=== PATIENT | male | born 1995 | race Caucasian/White ===

== ENCOUNTER 2020-05-28 11:23 | Emergency (ER) | payer OTHER ==
[2020-05-28] MEDS ORDERED: Sodium Chloride 0.9% 1000 ML 1,000 ML IV STA (11:28)
[2020-05-28] MEDS ORDERED: Sodium Chloride 0.9% 1000 ML 1,000 ML ONE (11:38)
[2020-05-28 11:47] LABS: Absolute Neutrophil Ct (ANC) 8.91 (1.4-6.9); BASOPHIL % 0.1 % (0.0-0.4); Basophil (Absolute #) 0.01 (0-0.4); Eosinophil % 0.1 % (0.00-5.0); Eosinophil (Absolute #) 0.01 (0-0.5); Hematocrit 48.3 % (42-50); Lymphocyte (Absolute #) 0.92 (1.0-4.6); Lymphocytes % 8.5 % (24.0-44.0); Mean Cell Volume 97.8 fl (78-100); Mean Corpuscular Hemoglobin 32.4 pg (26-32); Mean Corpuscular Hgb Concent. 33.1 g/dl (32-36); Mean Platelet Volume 11.1 fl (7.5-11.0); Monocyte (Absolute #) 0.94 (0.0-1.3); Monocytes % 8.7 % (0.0-12.0); Neutrophil % 82.6 % (36.0-66.0); Platelet Count 179 K/mm3 (150-450); Red Blood Count 4.94 M/mm3 (4.1-5.6); Red Cell Distribution Width 13.1 % (11.5-14.0); White Blood Count 10.8 K/mm3 (4.0-10.5)
[2020-05-28 11:57] LABS: ALBUMIN 4.6 g/dL (3.5-5.0); ALKALINE PHOSPHATASE 57 U/L (38-126); ANION GAP 14.6 MEQ/L (5-15); BLOOD UREA NITROGEN 15 mg/dL (9-20); CHLORIDE 104 mmol/L (98-107); Calcium 9.7 mg/dL (8.4-10.2); Carbon Dioxide 26 mmol/L (22-30); Creatinine 1 1.03 mg/dL (0.66-1.25); EST GLOMERULAR FILTRATION RATE > 60.0 ML/MIN; Glucose 91 mg/dL (74-106); Potassium 4.6 mmol/L (3.5-5.1); SGOT/AST 52 U/L (17-59); SGPT/ALT 31 U/L (0-50); SODIUM 140 mmol/L (137-145); Total Protein 7.7 g/dL (6.3-8.2)
[2020-05-28] MEDS ORDERED: Keppra 500 MG/5 ML*** 1,000 MG in D5w 100ML Mini Bag 100 ML 100 ML IV ONE (12:01)
--- NOTE | 2020-05-28 12:01 | ERPHSYRPT ---
- History of Present Illness Time Seen by Provider: 05/28/20 11:57 Source: patient, EMS Exam Limitations: no limitations Patient Subjective Stated Complaint: pt here from [facility] for seizures since last yesterday, he was seen at [facility] yesterday for same thing and sent home. they states he has over 20 at half-way today and had 4 in ambulance. pt had one seizure here lasting 20 seconds, pt is now alert. Triage Nursing Assessment: pt alert, resp easy, face mask givne, has swelling and bruising to right eye from falling yesterday, and has abrasion with swelling to left side of forehead, Physician History: pt here from [facility] for seizures since last yesterday, he was seen at [facility] yesterday for same thing and sent home. they states he has over 20 at half-way today and had 4 in ambulance. pt had one seizure here lasting 20 seconds, Time of Onset/Last Time Seen Normal: had ~20 at half-way, one lasted for 20 seconds. patient is alert now, no post Timing/Duration: today Character of Deficits: none Deficits: no difficulties Baseline/Normal Cognition: alert oriented x 3 Current Cognition: alert oriented x 3 Associated Symptoms: denies symptoms, other (bruised right eye) Allergies/Adverse Reactions: No Known Drug Allergies Allergy (Unverified 05/28/20 11:37) Home Medications: Levetiracetam [Keppra 500 mg ] 2 ea DAILY 05/28/20 [History] Hx Tetanus, Diphtheria Vaccination/Date Given: No Hx Influenza Vaccination/Date Given: No Hx Pneumococcal Vaccination/Date Given: No Immunizations Up to Date: Yes Travel Risk - International Travel Have you traveled outside of the country in past 3 weeks: No - Coronavirus Screening Are you exhibiting any of the following symptoms?: No Close contact with a COVID-19 positive Pt in past 14-21 Days: No - Review of Systems Constitutional: No Fever, No Chills Eyes: No Symptoms, Other (bruised racoon eye, right) Ears, Nose, & Throat: No Symptoms Respiratory: No Cough, No Dyspnea Cardiac: No Chest Pain, No Edema, No Syncope Abdominal/Gastrointestinal: No Abdominal Pain, No Nausea, No Vomiting, No Diarrhea Genitourinary Symptoms: No Dysuria Musculoskeletal: No Back Pain, No Neck Pain Skin: No Rash Neurological: Seizure, No Dizziness, No Focal Weakness, No Sensory Changes Psychological: No Symptoms Endocrine: No Symptoms All Other Systems: Reviewed and Negative - Past Medical History Pertinent Past Medical History: Yes Neurological History: Seizures - Past Surgical History Past Surgical History: No - Social History Smoking Status: Former smoker Exposure to second hand smoke: No Patient Lives Alone: No (half-way) - Nursing Vital Signs Nursing Vital Signs: Initial Vital Signs Temperature 98.6 F 05/28/20 11:25 Pulse Rate 100 H 05/28/20 11:25 Respiratory Rate 18 05/28/20 11:25 Blood Pressure 126/48 05/28/20 11:25 O2 Sat by Pulse Oximetry 98 05/28/20 11:25 Pain Scale Pain Intensity 5 - [place] Coma Scale Best Eye Response ([place]): (4) open spontaneously Best Verbal Response ([place]): (5) oriented Best Motor Response ([place]): (6) obeys commands [place] Total: 15 - Physical Exam General Appearance: no apparent distress, alert Eye Exam: right eye: other (racoon eye), bilateral eye: PERRL, EOMI Ears, Nose, Throat Exam: normal ENT inspection, moist mucous membranes Neck Exam: normal inspection, non-tender, supple Respiratory: normal breath sounds, lungs clear, airway intact, No respiratory distress Cardiovascular: regular rate/rhythm, No edema Gastrointestinal: soft, No tenderness, No distention Back Exam: normal inspection Extremity Exam: normal inspection, No pedal edema Mental Status: alert, oriented x 3 tool and die repair Exam: tongue midline Coordination/Gait: normal finger to nose, normal gait Skin Exam: normal color, warm, dry, No rash SpO2: 98 - Course Nursing assessment & vital signs reviewed: Yes EKG Interpreted by Me: Sinus Rhythm - CT Exams Head CT Interpretation: Tele-radiologist Report, Other (right eyelid hematoma, otherwise normal) Ordered Tests: Active Orders 24 hr Category Date Time Status Tailer Off STAT Care 05/28/20 11:29 Active EKG-ER Only STAT Care 05/28/20 11:37 Active IV Insertion STAT Care 05/28/20 11:28 Active IV Insertion-2nd Peripheral STAT Care 05/28/20 11:37 Active HEAD WITHOUT CONTRAST [CT] Stat Exams 05/28/20 11:33 Taken CBC W DIFF Stat Lab 05/28/20 11:30 Completed CMP Stat Lab 05/28/20 11:30 Completed Lactic Acid Stat Lab 05/28/20 11:43 Completed UA W/RFX UR CULTURE Stat Lab 05/28/20 12:05 Ordered Urine Triage Profile Stat Lab 05/28/20 12:05 Ordered Medication Summary Generic Name Dose Route Start Last Admin Trade Name Matt PRN Reason Stop Dose Admin Sodium Chloride 1,000 mls @ 999 mls/hr 05/28/20 11:28 05/28/20 11:38 Sodium Chloride 0.9% 1000 Ml IV 05/28/20 12:28 999 mls/hr .Q1H1M STA Administration Levetiracetam 1,000 mg/ 110 mls @ 220 mls/hr 05/28/20 12:01 05/28/20 12:09 Dextrose IV 05/28/20 12:30 220 mls/hr STAT ONE Administration Discontinued Medications Generic Name Dose Route Start Last Admin Trade Name Matt PRN Reason Stop Dose Admin Sodium Chloride Confirm 05/28/20 11:38 Sodium Chloride 0.9% 1000 Ml Administered 05/28/20 11:39 Dose 1,000 mls @ ud .ROUTE .STK-MED ONE Dextrose Confirm 05/28/20 12:05 D5w 100ml Mini Bag 100 Ml Administered 05/28/20 12:06 Dose 100 mls @ ud IV .STK-MED ONE Levetiracetam Confirm 05/28/20 12:05 Keppra 500 Mg/5 Ml Administered 05/28/20 12:06 Dose 1,000 mg .ROUTE .STK-MED ONE Lab/Rad Data: Laboratory Result Diagrams 05/28/20 11:30 05/28/20 11:30 Laboratory Results 05/28/20 05/28/20 05/28/20 Range/Units 11:43 11:30 11:30 WBC 10.8 H (4.0-10.5) K/mm3 RBC 4.94 (4.1-5.6) M/mm3 Hgb 16.0 (12.5-18.0) gm/dl Hct 48.3 (42-50) % MCV 97.8 (78-100) fl MCH 32.4 H (26-32) pg MCHC 33.1 (32-36) g/dl RDW 13.1 (11.5-14.0) % Plt Count 179 (150-450) K/mm3 MPV 11.1 H (7.5-11.0) fl Gran % 82.6 H (36.0-66.0) % Eos # (Auto) 0.01 (0-0.5) Absolute Lymphs (auto) 0.92 L (1.0-4.6) Absolute Monos (auto) 0.94 (0.0-1.3) Lymphocytes % 8.5 L (24.0-44.0) % Monocytes % 8.7 (0.0-12.0) % Eosinophils % 0.1 (0.00-5.0) % Basophils % 0.1 (0.0-0.4) % Absolute Granulocytes 8.91 H (1.4-6.9) Basophils # 0.01 (0-0.4) Sodium 140 (137-145) mmol/L Potassium 4.6 (3.5-5.1) mmol/L Chloride 104 (98-107) mmol/L Carbon Dioxide 26 (22-30) mmol/L Anion Gap 14.6 (5-15) MEQ/L BUN 15 (9-20) mg/dL Creatinine 1.03 (0.66-1.25) mg/dL Estimated GFR > 60.0 ML/MIN Glucose 91 (74-106) mg/dL Lactic Acid 1.9 (0.4-2.0) Calcium 9.7 (8.4-10.2) mg/dL Total Bilirubin 1.80 H (0.2-1.3) mg/dL AST 52 (17-59) U/L ALT 31 (0-50) U/L Alkaline Phosphatase 57 (38-126) U/L Serum Total Protein 7.7 (6.3-8.2) g/dL Albumin 4.6 (3.5-5.0) g/dL - Progress Progress: improved Progress Note: 05/28/20 12:20 No seizure activity noted in the emergency room. During the whole emergency room stay patient remains seizure-free. All labs and CT head unremarkable. Patient was given IV Keppra 1000 mg. Patient was advised to stay on Keppra at present. Patient is advised to follow-up with neurologist. Counseled pt/family regarding: lab results, diagnosis, need for follow-up (with neurologist), rad results - Departure Departure Disposition: Prison/Detention Clinical Impression: Seizure disorder, myoclonic Condition: Stable Critical Care Time: Yes Critical Care Time(excluding separately billable procedures): Critical 30-74 mins Instructions: Seizures, Adult (DC) Additional Instructions: Discharge/Care Plan amber salmon was seen on 05/28/20 in the Emergency Room. The patient was counseled regarding Diagnosis,Lab results, Imaging studies, need for follow up and when to return to the Emergency Room. Prescriptions given: Discharge Note I have spoken with the patient and/or caregivers. I have explained the patient's condition, diagnosis and treatment plan based on the information available to me at this time. I have answered the patient's and/or caregiver's questions and addressed any concerns. The patient and/or caregivers have as good understanding of the patient's diagnosis, condition and treatment plan as can be expected at this point. The vital signs have been stable. The patient's condition is stable and appropriate for discharge from the emergency department. The patient will pursue further outpatient evaluation with the primary care physician or other designated or consulting physician as outlined in the discharge instructions. The patient and/or caregivers are agreeable to this plan of care and follow-up instructions have been explained in detail. The patient and/or caregivers have received these instruction. The patient/and or caregivers are aware that any significant change in condition or worsening of symptoms should prompt an immediate return to this or the closest emergency department or call 911. amber Salmon was seen on 05/28/20 n the Emergency Room. At that time you were treated for an emergent condition, during your visit Laboratory, Radiology and/or other procedures may have been ordered. It is very important that you follow-up with your Primary Care Physician within the next 24-48 hours to review your Emergency Room visit and the final results of testing that was ordered. Some test results such as Urine Cultures, Blood Cultures, and other cultures if ordered will not be finalized for 24-48 hours. If you do not have a Primary Care Provider please call the medical records department at [phone] to obtain a copy of your results or you may sign into our patient portal to obtain these results by visiting us @ [email or web address] and completing the following steps: 1. Click on the Patient Portal link 2. Click the Patient Self Enrollment Link to complete the enrollment form and entering your 3. Once the enrollment form is completed you will receive an email with a temporary ID and password at the email address you provided. 4. Next choose a user name and password. Your user name must be at least 4 characters long and your password must be at least 4 characters long. 5. Choose a security question from the list and provide your answer to the question. If you already have signed into the Health Portal you may access your Health Care Information 01/10 by the following steps: 1. Login to our website @ [email or web address] 2. Enter your original user name and password. FAQS The [facility] Health Portal is an online tool that contains your Lab Results, Radiology Reports, Visit History, Discharge Instructions and Health Summary Lab and Radiology Results will not be available for 72 hours on the portal. The Portal is a secure site, passwords are encryted and URLs are re-written so they cannot be copied and pasted. You and authorized family members are the only ones who can access your Portal. Also there is a timeout feature that protects your information if you leave the Portal page open. If you have technical difficulty please use the Contact Us link on the page this will allow you to submit any questions you have regarding the Portal or you may contact the Medical Record Department at [phone].
[2020-05-28] MEDS ORDERED: Keppra 500 MG/5 ML ONE (12:05)
[2020-05-28] MEDS ORDERED: D5w 100ML Mini Bag 100 ML 100 ML IV ONE (12:05)
[2020-05-28 12:18] LABS: Amphetamine,Urine NEGATIVE (NEGATIVE); Barbiturate,Urine NEGATIVE (NEGATIVE); Benzodiazepine,Urine NEGATIVE (NEGATIVE); Cocaine,Urine NEGATIVE (NEGATIVE); Methadone,Urine NEGATIVE (NEGATIVE); Opiate,Urine NEGATIVE (NEGATIVE); PCP,Urine NEGATIVE (NEGATIVE); THC,Urine NEGATIVE (NEGATIVE)
[2020-05-28 12:19] LABS: Appearance CLEAR (CLEAR); Bilirubin NEGATIVE (NEGATIVE); Blood NEGATIVE Ery/ul (0-5); Glucose NEGATIVE (NEGATIVE); Hyaline Casts 0-2 /LPF (0-2); Ketones TRACE (NEGATIVE); Leukocyte Esterase NEGATIVE (NEGATIVE); Mucus MODERATE /HPF (NEGATIVE); Nitrite NEGATIVE (NEGATIVE); Protein,Urine Dip 100 (Negative); Specific Gravity 1.034 (1.005-1.025); Urobilinogen NEGATIVE mg/dL (0-1)
[2020-05-28 12:25] VITALS: O2SAT 98
[2020-05-28 13:10] VITALS: BP 127/69; PULSE 84
--- NOTE | 2020-05-28 18:43 | XRAY ---
Indication: Seizure one day earlier. Right eye swelling/bruising and left forehead swelling/bruising. Multiple contiguous axial images obtained through the head without contrast. Comparison: None Normal appearing brain parenchyma, ventricles, and bony calvarium. Mild right frontoparietal soft tissue swelling. Visualized paranasal sinuses and mastoid air cells are clear. Impression: No acute intracranial abnormalities. Comment: Preliminary interpretation was made by [facility]. No critical discrepancy.
== END 2020-05-28 13:20 | disposition home or self-care (01) ==
LOC: ED 11:23 → EEVIPCON 11:23 → ED 13:20
DX: Z79.899 Other long term (current) drug therapy (principal)
CPT/HCPCS: 36000; 36415; 70450; 80053; 80307; 81001; 83605; 85025; 93005; 93041; 96360; 99285; 99291; J1953